=== PATIENT | female | born 1940 | race Two or more races ===

== ENCOUNTER 2019-02-01 13:18 | Inpatient (IN) | payer OTHER, MEDICARE ==
[2019-02-01 13:28] VITALS: BMI 32.8
--- NOTE | 2019-02-01 13:38 | PDOC ---
History of Present Illness - General Chief Complaint: Diarrhea Stated Complaint: Diarrhea Time Seen by Provider: 02/01/19 13:37 History Source: Patient Exam Limitations: No Limitations - History of Present Illness Initial Comments: 78 year old female with PMH HTN, HLD, NIDDM, hemorrhoids with chronic rectal bleeding, right anterior lower leg ulcer, chronic lymphedema, AV replacement, CAD sp CABG, left lung CA s/p radiation, pulmonary HTN presented to ED for diarrhea x3 days. She reported that Dr. Bailey placed her on Linolezid 01/25/19 for her RLE ulcer in preparation for a vein procedure to be performed by vascular. She reported she has an appointment with Dr. Multani for this afternoon , but when she called and said she had diarrhea the wound clinic advised her to come to the ED. She denied fever, abdominal pain, lightheadedness, chest pain, shortness of breath, dysuria. She admitted to blood on toilet paper today, denied blood mixed in stool, which is similar to her usual bowel movements with her hemorrhoids. PCP: Meet Swain Past History - Past Medical History Allergies/Adverse Reactions: Allergies Allergy/AdvReac Type Severity Reaction Status Date / Time ciprofloxacin Allergy Severe Difficulty Verified 02/01/19 13:29 Breathing Penicillins Allergy Severe Difficulty Verified 02/01/19 13:29 Breathing Quinolones Allergy Severe Difficulty Verified 02/01/19 13:29 Breathing levofloxacin [From Levaquin] Allergy Verified 02/01/19 13:29 Home Medications: Ambulatory Orders Allopurinol [Zyloprim -] 300 mg PO DAILY 08/05/18 Carvedilol [Coreg -] 6.25 mg PO BID 08/05/18 Epoetin Eulalio [Procrit -] 60,000 unit SQ ASDIR 08/05/18 Famotidine [Pepcid] 20 mg PO DAILY 08/05/18 Furosemide [Lasix] 60 mg PO DAILY 08/05/18 Levothyroxine Sodium [Synthroid] 88 mcg PO AM 08/05/18 Lipitor 40 mg PO HS 08/05/18 Magnesium Oxide [Magnesium] 400 mg PO DAILY 08/05/18 Vitamin D - 2,000 units PO DAILY 08/05/18 Pantoprazole Sodium [Protonix] 40 mg PO BID 02/01/19 Anemia: Yes Asthma: Yes Cancer: Yes (Lung stage 2 had radiation) Cardiac Disorders: Yes (Valve replacement Jan 2019) CVA: No COPD: Yes CHF: No Dementia: No Diabetes: Yes GI Disorders: Yes (Bleeding) Disorders: No HTN: Yes Hypercholesterolemia: Yes Liver Disease: No Seizures: No Thyroid Disease: Yes (HyPothyroidism) - Surgical History Abdominal Surgery: Yes (Hernia rerpair and abd Hernia present) Appendectomy: Yes Cardiac Surgery: Yes Cholecystectomy: Yes Lung Surgery: No Neurologic Surgery: No Orthopedic Surgery: No - Psycho Social/Smoking Cessation Hx Smoking History: Unknown if ever smoked Have you smoked in the past 12 months: No If you are a former smoker, when did you quit?: 20 years ago Information on smoking cessation initiated: No Hx Alcohol Use: No Drug/Substance Use Hx: No *Physical Exam - Vital Signs Last Vital Signs Temp Pulse Resp BP Pulse Ox 97.8 F 78 16 101/59 L 100 02/01/19 13:27 02/01/19 13:27 02/01/19 13:27 02/01/19 13:27 02/01/19 13:27 - Physical Exam Comments: ROS General: denied fever, chills, generalized weakness. HEENT: denied sore throat, rhinorrhea, ear pain. Cardiovascular: denied chest pain, palpitations, syncope, diaphoresis. Respiratory: denied shortness of breath, cough, sputum production, hemoptysis. Gastrointestinal: admitted to diarrhea. denied abdominal pain, nausea, vomiting , constipation, blood in stool. Genitourinary: denied dysuria, increased urinary frequency, hematuria, urinary incontinence, flank pain. Back: denied back pain. Musculoskeletal: denied joint pain, muscle pain, joint swelling. Neurological: denied headache, dizziness, numbness, tingling, weakness. Integumentary: denied rash, laceration, abrasion. Hematologic/Lymphatic: denied bruising or bleeding. PE Constitutional: Well-nourished, Well-developed, appearing stated age. HEENT: head is normocephalic, atraumatic. EOMI. PERRLA. Neck: supple. Full ROM. Cardiovascular: regular heart rhythm. no murmurs. no pericardial friction rub. Respiratory: clear to auscultation bilaterally. no crackles, rhonchi or wheezing. no stridor. Gastrointestinal: soft, nontender. protuberant. normal bowel sounds. no rebound , guarding, masses. Extremities: peripheral pulses intact. no lower extremity pitting edema. RLE 4x4 cm circular ulcer to anterior [place]. Neurological: CN 2-12 grossly intact. moves all four extremities. Psych: awake, alert, oriented x3. follows commands. answers questions appropriately. ED Treatment Course - LABORATORY CBC & Chemistry Diagram: 02/01/19 14:14 02/01/19 14:14 Medical Decision Making - Medical Decision Making 78 year old female with above PMH presented to ED for diarrhea. Initial Vital Signs Temp Pulse Resp BP Pulse Ox 97.8 F 78 16 101/59 L 100 02/01/19 13:27 02/01/19 13:27 02/01/19 13:27 02/01/19 13:27 02/01/19 13:27 Afebrile. No tachycardia. No tachypnea. Hypotensive. No hypoxia on room air. Labs ordered: CBC, CMP, blood cultures, mag, phos, stool culture, stool for blood IMAGING ORDERED: CT abdomen/pelvis with IV contrast MEDICATIONS ORDERED: normal saline bolus 1000 cc once 02/01/19 14:[address] Bailey about the patient, he reported he will consult. 02/01/19 15:19 CBC WBC 4.1 K/mm3 (4.0-10.0) 02/01/19 14:14 RBC 3.18 M/mm3 (3.60-5.2) L 02/01/19 14:14 Hgb 9.0 GM/dL (10.7-15.3) L 02/01/19 14:14 Hct 29.1 % (32.4-45.2) L 02/01/19 14:14 MCV 91.5 fl (80-96) 02/01/19 14:14 MCH 28.2 pg (25.7-33.7) 02/01/19 14:14 MCHC 30.8 g/dl (32.0-36.0) L 02/01/19 14:14 RDW 19.8 % (11.6-15.6) H 02/01/19 14:14 Plt Count 78 K/MM3 (134-434) L 02/01/19 14:14 MPV 10.1 fl (7.5-11.1) 02/01/19 14:14 Absolute Neuts (auto) 3.4 K/mm3 (1.5-8.0) 02/01/19 14:14 Neutrophils % 81.6 % (42.8-82.8) 02/01/19 14:14 Lymphocytes % 11.1 % (8-40) 02/01/19 14:14 Monocytes % 4.2 % (3.8-10.2) 02/01/19 14:14 Eosinophils % 1.6 % (0-4.5) 02/01/19 14:14 Basophils % 1.5 % (0-2.0) 02/01/19 14:14 Nucleated RBC % 0 % (0-0) 02/01/19 14:14 No leukocytosis. Normocytic anemia. Thrombocytopenia. CMP Sodium 139 mmol/L (136-145) 02/01/19 14:14 Potassium 5.6 mmol/L (3.5-5.1) H 02/01/19 14:14 Chloride 110 mmol/L (98-107) H 02/01/19 14:14 Carbon Dioxide 20 mmol/L (21-32) L 02/01/19 14:14 Anion Gap 9 MMOL/L (8-16) 02/01/19 14:14 BUN 74.1 mg/dL (7-18) H 02/01/19 14:14 Creatinine 2.0 mg/dL (0.55-1.3) H 02/01/19 14:14 Est GFR (CKD-EPI)AfAm 27.22 02/01/19 14:14 Est GFR (CKD-EPI)NonAf 23.49 02/01/19 14:14 Random Glucose 140 mg/dL (74-106) H 02/01/19 14:14 Calcium 7.2 mg/dL (8.5-10.1) L 02/01/19 14:14 Phosphorus 5.3 mg/dL (2.5-4.9) H 02/01/19 14:14 Magnesium 1.0 mg/dL (1.8-2.4) L 02/01/19 14:14 Total Bilirubin 0.6 mg/dL (0.2-1) 02/01/19 14:14 AST 35 U/L (15-37) 02/01/19 14:14 ALT 29 U/L (13-61) 02/01/19 14:14 Alkaline Phosphatase 259 U/L (45-117) H 02/01/19 14:14 Total Protein 6.7 g/dl (6.4-8.2) 02/01/19 14:14 Albumin 2.8 g/dl (3.4-5.0) L 02/01/19 14:14 Mild hyperkalemia - EKG is ordered. -Medications ordered: Calcium gluconate 1000 mg IV once -IVF running Mild hypocalcemia - corrected 8.2 Hypomagnesium -Medications ordered: Magnesium 2g IV once Elevated ALP. Stool positive for blood. Medications ordered: PO Vancomycin 02/01/19 15:36 EKG performed at 1520: rate 83, regular rhythm, normal axis, normal intervals, no acute ST changes, no peaked T waves. 02/01/19 16:18 Pt was very anxious while at CT, reported she has a history of claustophobia, and even with CT is very anxious. She reported she had an abdominal CT x1 month ago that was normal, and she does not feel she needs the CT today. Pt was informed and educated on why the CT was ordered, that since her last normal one she has developed antibiotic associated diarrhea, high concern for C-diff, and we must look for complications such as toxic megacolon. She reported understanding and ultimately was able to tolerate the CT being performed. 02/01/19 16:50 Pt reported to RN she would like to be transferred to [facility] if she is going to be admitted because all of her doctors are there. Pt informed she can leave AMA and go to her own hospital, but that we cannot provide her with ambulance transfer for preference. She reported she only came to this hospital because she was instructed by wound care specifically. She ultimately decided to stay in this hospital with the persuasion of her . 02/01/19 17:25 CT report: Name: [facility] DEPARTMENT OF RADIOLOGY Phys: Zaria Ulloa RESIDENT : 1940 Age: 78 Sex: F [facility] Acct: [id number] Loc: [address] Exam Date: 02/01/19 Status: [place] [id number] Unit Number: [id number] EXAM#: TYPE/EXAM: RESULT: [id number] CT/ABDOMEN PELVIS CT W/O CONTR Abdomen and pelvis CT without contrast Clinical information: diarrhea after starting antibiotics Multiplanar imaging was performed. No intravenous or enteric contrast was administered. No prior imaging studies are available at this facility for direct comparison. There is no evidence of pneumoperitoneum, or bowel obstruction. A small amount of free intraperitoneal fluid is noted within the pelvic cul-de-sac. A small right pleural effusion is seen. Cardiomegaly is noted. Status post median sternotomy. Concentric subcutaneous edema is seen along the abdomen and pelvis. A 3 cm subcutaneous cystic structure seen along the left anterior pelvic wall. No obvious large or small bowel wall edema is seen allowing for lack of intraluminal contrast. Mild hepatic vein and inferior vena cava distention is noted probably secondary cardiac dysfunction. Note is also made of mild periportal edema probably on the same basis. Status post cholecystectomy. Mild common bile duct dilatation is noted with a 0.9 cm diameter. No gross intraductal calculus is seen within the limitations of CT. The spleen measures 13 cm in length. The pancreas, adrenal glands and kidneys demonstrate no obvious noncontrast pathology. Prominent atherosclerotic vascular calcifications are noted. There is no aortic aneurysm. No gross lymphadenopathy is noted. The appendix is not definitely visualized however there are no obvious indirect CT signs of acute appendicitis. No obvious acute diverticulitis. Impression: There is no gross CT evidence of enterocolitis. Small amount of pelvic free fluid. Small right pleural effusion. Cardiomegaly. Status post median sternotomy. Prominent concentric subcutaneous edema along the abdomen and pelvis. Status post cholecystectomy. Mild nonspecific common bile duct dilatation which may be postsurgical. Clinical/laboratory correlation is suggested. Minimal to mild splenomegaly. 3 cm left anterior pelvic subcutaneous cystic structure. Reported By: Beka Fernández MD 02/01/19 2689 CXR report: Name: [facility] DEPARTMENT OF RADIOLOGY Phys: Zaria Ulloa RESIDENT : 1940 Age: 78 Sex: F [facility] Acct: [id number] Loc: [address] Exam Date: 02/01/19 Status: [facility] [place] [address] Unit Number: [id number] EXAM#: TYPE/EXAM: RESULT: [id number] RAD/CHEST PA LAT 2 view chest Comparison studies: None Clinical history: Admission for diarrhea Abnormal chest radiograph , cardiomegaly with endovascular replacement aortic valve. Median sternotomy wires and CABG clips in place. Calcified aortic arch with no mediastinal widening. Emphysematous changes in the lungs with blunting in the posterior costophrenic sulci, small pleural effusions at the bases with emphysematous changes in the lungs Patchy alveolar airspace consolidation left upper lobe suspicious for pneumonia Impression: Left upper lobe pneumonia with emphysematous changes and pleural effusions at the bases. Clinical correlation. Reported By: Cesar Rudolph MD 02/01/19 1602 -No cough, no fever, no shortness of breath -Suspect left sided opacity is related to lung CA -Will not treat at this time 02/01/19 18:06 Sign out given to Dr. Orourke, who agrees with admission. 02/01/19 18:58 Repeat blood pressure elevated 190s systolic per tech. Pt is due for night HTN medications. Coreg 6.25 mg PO once ordered. Discharge - Discharge Information Problems reviewed: Yes Clinical Impression/Diagnosis: Diarrhea, Hypomagnesemia, Hypocalcemia, Hyperkalemia Condition: Stable - Admission Yes - Follow up/Referral - Patient Discharge Instructions - Post Discharge Activity
[2019-02-01] MEDS ORDERED: SODIUM CHLORIDE 1,000 ML IV STA (14:01)
[2019-02-01 14:36] LABS: BASO % 1.5 % (0-2.0); EOS % 1.6 % (0-4.5); HEMATOCRIT 29.1 % (32.4-45.2); LYMPH % 11.1 % (8-40); MCH 28.2 pg (25.7-33.7); MCHC 30.8 g/dl (32.0-36.0); MEAN CELL VOLUME 91.5 fl (80-96); MEAN PLT VOLUME 10.1 fl (7.5-11.1); MONO % 4.2 % (3.8-10.2); NEUT % 81.6 % (42.8-82.8); PLATELET COUNT 78 K/MM3 (134-434); RBC 3.18 M/mm3 (3.60-5.2); RDW 19.8 % (11.6-15.6); WHITE BLOOD COUNT 4.1 K/mm3 (4.0-10.0)
[2019-02-01 14:44] LABS: INR 1.26 (0.83-1.09); PROTHROMBIN TIME (PATIENT) 14.9 SEC (9.7-13.0)
[2019-02-01 14:47] LABS: ACTIVATED PTT 30.3 SECONDS (25.2-36.5)
[2019-02-01 14:59] LABS: ALBUMIN 2.8 g/dl (3.4-5.0); BILIRUBIN,TOTAL 0.6 mg/dL (0.2-1); BLOOD UREA NITROGEN 74.1 mg/dL (7-18); CALCIUM 7.2 mg/dL (8.5-10.1); POTASSIUM 5.6 mmol/L (3.5-5.1); TOT PROT 6.7 g/dl (6.4-8.2)
[2019-02-01] MEDS ORDERED: MAGNESIUM SULF 50% (8.12 MEQ/2 ML-1 GM VIAL) IVPB ONE (15:18)
[2019-02-01] MEDS ORDERED: CALCIUM GLUCONATE 10% - 1,000 MG/10 ML VIAL IVPUSH ONE (15:18)
[2019-02-01] MEDS ORDERED: VANCOMYCIN 250 MG/5 ML ORAL SOLUTION PO ONE (15:39)
[2019-02-01] MEDS ORDERED: CALCIUM GLUCONATE 10% - 1,000 MG/10 ML VIAL ONE (16:10)
[2019-02-01] MEDS ORDERED: MAGNESIUM 1GM/D5W - 2 GM/200 ML IVPB IVPB ONE (16:11)
--- NOTE | 2019-02-01 17:43 | PDOC ---
Attending Attestation - Resident Resident Name: Zaria Ulloa - ED Attending Attestation I have performed the following: I have examined & evaluated the patient, The case was reviewed & discussed with the resident, I agree w/resident's findings & plan, Exceptions are as noted - HPI HPI: 02/01/19 17:36 78 yo F with h/o lung ca s/p radiation, pulm htn ( no resection), copd, htn hld , DM chronic lymphedema, leg wounds, followed by DR Multani, and dr Sorenson. was started on linezolid by dr bailey, few day prior. started getting loose stool, diarreha, nausea, and blood on toilet paper. no abd pain. no fever. no chills. no mod factors. does have h/o rectal bleeding in the past, hemorrhoids. states her renal doctor, and lung specialist and oncologist are at [facility] pcp (lung specialist) Dr Da Silva ( cycle director) Dr Multani, vascular DR Bailey ID It Support Technician - Physicial Exam PE: 02/01/19 17:40 awake alert lungs clear bilat heart rrr no mrg abd soft obese, nontender. ext wwp. nuero alert oriented x 3. - Medical Decision Making 02/01/19 17:40 78 yo F with chronic leg wounds, on abx, pulm htn lung ca htn dm here with nausea and diarrhea differential is C diff, dehydration, electrlyte abnormality renal failure. ct a/p r/o megacolin, diverticulitis. colitis. ct a/p no 02/01/19 17:44 pt with infiltrate left upper lobe/ cancer. . noted to have renal failure cr. 2.0, hyperkalemia 5.6. hypomagnesiums. 1.0. hypocalcemia 7.6. given po vancomycin for her diarreha. will consult dr bailey. and admit for renal insufficiencyl. Heart Score/ECG Review #1 ECG reviewed & interpreted by me at: 17:46 General ECG Interpretation: Sinus Rhythm, Normal Rate, Normal Intervals, No acute ischemic changes
[2019-02-01] MEDS ORDERED: VANCOMYCIN 250 MG/5 ML ORAL SOLUTION PO SCH (18:00)
[2019-02-01] MEDS ORDERED: CARVEDILOL 6.25 MG TABLET (FP) PO ONE (18:57)
[2019-02-01 19:37] LABS: BLOOD UREA NITROGEN 73.4 mg/dL (7-18); CALCIUM 7.1 mg/dL (8.5-10.1); CREATININE 1.9 mg/dL (0.55-1.3); MAGNESIUM 1.4 mg/dL (1.8-2.4); POTASSIUM 5.2 mmol/L (3.5-5.1)
[2019-02-01] MEDS ORDERED: CARVEDILOL 3.125 MG TABLET (FP) ONE (20:04)
--- NOTE | 2019-02-01 20:52 | HP ---
Admitting History and Physical - Primary Care Physician PCP: Reagan Orourke - Admission History of Present Illness: 78 yo F with h/o lung ca s/p radiation, pulm htn ( no resection), copd, htn hld , DM chronic lymphedema, leg wounds, followed by DR Multani, and dr Sorenson. was started on linezolid by dr nazario, few day prior. started getting loose stool, diarreha, nausea, and blood on toilet paper. no abd pain. no fever. no chills. no mod factors. does have h/o rectal bleeding in the past, hemorrhoids. states her renal doctor, and lung specialist and oncologist are at [facility] - Past Medical History Cardiovascular: Yes: HTN, Hyperlipdemia Pulmonary: Yes: COPD, Other (lung ca) Endocrine: Yes: Diabetes Mellitus - Smoking History Smoking history: Unknown if ever smoked Have you smoked in the past 12 months: No If you are a former smoker, when did you quit?: 20 years ago - Alcohol/Substance Use Hx Alcohol Use: No Home Medications - Allergies Allergies/Adverse Reactions: Allergies Allergy/AdvReac Type Severity Reaction Status Date / Time ciprofloxacin Allergy Severe Difficulty Verified 02/01/19 13:29 Breathing Penicillins Allergy Severe Difficulty Verified 02/01/19 13:29 Breathing Quinolones Allergy Severe Difficulty Verified 02/01/19 13:29 Breathing levofloxacin [From Levaquin] Allergy Verified 02/01/19 13:29 - Home Medications Home Medications: Ambulatory Orders Allopurinol [Zyloprim -] 300 mg PO DAILY 08/05/18 Carvedilol [Coreg -] 6.25 mg PO BID 08/05/18 Epoetin Eulalio [Procrit -] 60,000 unit SQ ASDIR 08/05/18 Famotidine [Pepcid] 20 mg PO DAILY 08/05/18 Furosemide [Lasix] 60 mg PO DAILY 08/05/18 Levothyroxine Sodium [Synthroid] 88 mcg PO AM 08/05/18 Lipitor 40 mg PO HS 08/05/18 Magnesium Oxide [Magnesium] 400 mg PO DAILY 08/05/18 Vitamin D - 2,000 units PO DAILY 08/05/18 Acetaminophen [Tylenol .Extra-Strength -] 1,000 mg PO DAILY 02/01/19 Ferrous Sulfate [Iron] 325 mg PO ONCE 02/01/19 Pantoprazole Sodium [Protonix] 40 mg PO BID 02/01/19 Physical Examination Vital Signs: Vital Signs Temperature 98.6 F 02/01/19 18:56 Pulse Rate 91 H 02/01/19 18:56 Respiratory Rate 19 02/01/19 18:56 Blood Pressure 197/72 H 02/01/19 18:56 O2 Sat by Pulse Oximetry (%) 98 02/01/19 18:56 Constitutional: Yes: No Distress HENT: Yes: Atraumatic Neck: Yes: Supple Cardiovascular: Yes: Regular Rate and Rhythm Respiratory: Yes: CTA Bilaterally Gastrointestinal: Yes: Normal Bowel Sounds Extremities: Yes: Other (wound prasad/ lymphedema) Neurological: Yes: Alert Labs: CBC, BMP 02/01/19 14:14 02/01/19 18:50 Imaging - Results Cat Scan: Report Reviewed Problem List - Problems (1) Diarrhea Assessment/Plan: ivf check stool cx, c diff Code(s): R19.7 - DIARRHEA, UNSPECIFIED (2) Hyperkalemia Assessment/Plan: will fu Code(s): E87.5 - HYPERKALEMIA (3) Hypocalcemia Code(s): E83.51 - HYPOCALCEMIA (4) Hypomagnesemia Code(s): E83.42 - HYPOMAGNESEMIA (5) Wound cellulitis Assessment/Plan: on iv abx id on board Code(s): L03.90 - CELLULITIS, UNSPECIFIED Assessment/Plan Laboratory Tests 02/01/19 02/01/19 02/01/19 14:14 14:14 14:14 WBC 4.1 RBC 3.18 L Hgb 9.0 L Hct 29.1 L MCV 91.5 MCH 28.2 MCHC 30.8 L RDW 19.8 H Plt Count 78 L MPV 10.1 Absolute Neuts (auto) 3.4 Neutrophils % 81.6 Lymphocytes % 11.1 Monocytes % 4.2 Eosinophils % 1.6 Basophils % 1.5 Nucleated RBC % 0 PT with INR INR PTT (Actin FS) Sodium 139 Potassium 5.6 H Chloride 110 H Carbon Dioxide 20 L Anion Gap 9 BUN 74.1 H Creatinine 2.0 H Est GFR (CKD-EPI)AfAm 27.22 Est GFR (CKD-EPI)NonAf 23.49 Random Glucose 140 H Calcium 7.2 L Phosphorus 5.3 H Magnesium 1.0 L Total Bilirubin 0.6 AST 35 ALT 29 Alkaline Phosphatase 259 H Total Protein 6.7 Albumin 2.8 L Stool Occult Blood 02/01/19 02/01/19 02/01/19 14:14 14:53 18:50 WBC RBC Hgb Hct MCV MCH MCHC RDW Plt Count MPV Absolute Neuts (auto) Neutrophils % Lymphocytes % Monocytes % Eosinophils % Basophils % Nucleated RBC % PT with INR 14.90 H INR 1.26 H PTT (Actin FS) 30.3 Sodium 139 Potassium 5.2 H Chloride 112 H Carbon Dioxide 17 L Anion Gap 10 BUN 73.4 H Creatinine 1.9 H Est GFR (CKD-EPI)AfAm 28.96 Est GFR (CKD-EPI)NonAf 24.99 Random Glucose 160 H Calcium 7.1 L Phosphorus Magnesium 1.4 L Total Bilirubin AST ALT Alkaline Phosphatase Total Protein Albumin Stool Occult Blood Positive Active Medications Generic Name Dose Route Start Last Admin Trade Name Freq PRN Reason Stop Dose Admin Acetaminophen 1,000 mg 02/01/19 22:33 02/03/19 22:38 Tylenol - PO 1,000 mg Q6H PRN Administration PAIN LEVEL 7 - 10 Albuterol Sulfate 1 amp 02/04/19 20:00 Ventolin 0.083% Nebulizer Soln - NEB RBID [facility] Allopurinol 300 mg 02/02/19 10:00 02/04/19 10:36 Zyloprim - PO 300 mg DAILY PETER Administration Atorvastatin Calcium 40 mg 02/01/19 22:00 02/03/19 21:06 Lipitor - PO 40 mg HS PETER Administration Carvedilol 6.25 mg 02/01/19 22:00 02/04/19 10:36 Coreg - PO 6.25 mg BID PETER Administration Famotidine 20 mg 02/02/19 10:00 02/04/19 10:36 Pepcid - PO 20 mg DAILY PETER Administration Ferrous Sulfate 325 mg 02/02/19 10:00 02/04/19 10:36 Feosol - PO 325 mg DAILY PETER Administration Furosemide 60 mg 02/02/19 10:00 02/04/19 10:36 Lasix - PO 60 mg DAILY PETER Administration Heparin Sodium (Porcine) 5,000 unit 02/01/19 22:00 02/04/19 10:28 Heparin - SQ 5,000 unit BID PETER Administration Aztreonam 1 gm/ Dextrose 50 mls @ 100 mls/hr 02/02/19 13:30 02/04/19 10:27 IVPB 100 mls/hr Q8H-IV PETER Administration Protocol Vancomycin HCl 1,250 mg/ 250 mls @ 250 mls/2 hr 02/02/19 13:30 02/04/19 12:44 Dextrose IVPB 250 mls/2 hr Q24H PETER Administration Protocol Levothyroxine Sodium 88 mcg 02/02/19 07:00 02/04/19 05:59 Synthroid - PO 88 mcg AM PETER Administration Pantoprazole Sodium 40 mg 02/02/19 10:00 02/04/19 10:38 Protonix - PO 40 mg DAILY PETER Administration Silver Sulfadiazine 1 applic 02/02/19 10:00 02/04/19 10:37 Silvadene - TP 1 applic DAILY PETER Administration
[2019-02-01] MEDS: CARVEDILOL 6.25 MG TABLET (FP) PO SCH (22:18)
[2019-02-01] MEDS: ATORVASTATIN CA 40 MG TABLET (FP) PO SCH (23:00)
[2019-02-01] MEDS ORDERED: ACETAMINOPHEN 325 MG TABLET (FP) ONE (23:00)
[2019-02-01] MEDS: HEPARIN NA (PORCINE) 5,000 UNITS/ML 1ML VIAL SQ SCH (23:00)
[2019-02-01] MEDS ORDERED: ATORVASTATIN CA 40 MG TABLET (FP) ONE (23:01)
[2019-02-01] MEDS ORDERED: FERROUS SO4 325 MG TABLET (FP) PO ONE (23:01)
[2019-02-01] MEDS ORDERED: PANTOPRAZOLE 40 MG TABLET (FP) PO ONE (23:01)
[2019-02-01] MEDS ORDERED: HEPARIN NA (PORCINE) 5,000 UNITS/ML 1ML VIAL ONE (23:04)
[2019-02-01] MEDS: ACETAMINOPHEN 500 MG TABLET (FP) PO PRN (23:16)
[2019-02-02 05:48] LABS: HEMOGLOBIN 8.6 GM/dL (10.7-15.3); MCH 28.3 pg (25.7-33.7); WHITE BLOOD COUNT 2.9 K/mm3 (4.0-10.0)
[2019-02-02 06:03] LABS: BASO % 1.4 % (0-2.0); EOS % 1.7 % (0-4.5); HEMATOCRIT 27.2 % (32.4-45.2); LYMPH % 26.3 % (8-40); MCHC 31.5 g/dl (32.0-36.0); MEAN CELL VOLUME 89.9 fl (80-96); MEAN PLT VOLUME 9.8 fl (7.5-11.1); MONO % 3.6 % (3.8-10.2); PLATELET COUNT 69 K/MM3 (134-434); RBC 3.03 M/mm3 (3.60-5.2); RDW 19.8 % (11.6-15.6)
[2019-02-02 06:41] LABS: ALBUMIN 2.7 g/dl (3.4-5.0); BILIRUBIN,TOTAL 0.7 mg/dL (0.2-1); BLOOD UREA NITROGEN 73.3 mg/dL (7-18); CALCIUM 7.4 mg/dL (8.5-10.1); CREATININE 1.9 mg/dL (0.55-1.3); POTASSIUM 4.8 mmol/L (3.5-5.1); TOT PROT 6.2 g/dl (6.4-8.2)
[2019-02-02] MEDS: LEVOTHYROXINE NA 88 MCG TABLET (FP) PO SCH (08:55)
--- NOTE | 2019-02-02 09:54 | CONSULT ---
- Consultation REQUESTING PROVIDER: CONSULT REQUEST: We have been asked to surgically evaluate this patient for Venous stasis wounds. PCP:Reagan Orourke HISTORY OF PRESENT ILLNESS: 78 y/o F w/ PMHx lung ca s/p radiation, pulm htn, copd, htn hld, CAD s/p stent placement, DM, chronic lymphedema known to Dr Multani , presents to ED for c/o diarrhea. Pt reports she was started on Linezolid by Dr Bailey a few day prior. Yesterday she reports an episode of significant diarrhea and nausea. Believes it is due to the antibiotics. Vascular consulted for evaluation of pts LE leg wounds. Pt reports she has had her current RLE wound for 5 months. She has been mainly treated at [facility], however her visiting nurse suggested seeing Dr Multani at wound Care here at [facility]. Pt began seeing Dr Multani a few weeks ago and was scheduled for ?vein surgery yesterday, however it was canceled due to diarrhea. Reports using Silvadene on LE wounds. Changes dressings daily herself, states VNS was d/c'ed recently by insurance due to coverage. Denies prior h/o cellulitis in le's, denies need for outpt abx for cellulitis or inpt admission. Just received lymphadema pump recently, has not used it yet. At baseline pt lives with , ambulates with a walker or cane, reports she is not limited in ambulation. Has remote h/o tobacco use, quit >40 years ago. Denies known le arterial disease or stent placement. 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 Wears compression socks at home. PMHx: as above PSHx: as above Home Medications Medication Instructions Recorded Allopurinol [Zyloprim -] 300 mg PO DAILY 08/05/18 Carvedilol [Coreg -] 6.25 mg PO BID 08/05/18 Epoetin Eulalio [Procrit -] 60,000 unit SQ ASDIR 08/05/18 Famotidine [Pepcid] 20 mg PO DAILY 08/05/18 Furosemide [Lasix] 60 mg PO DAILY 08/05/18 Levothyroxine Sodium [Synthroid] 88 mcg PO AM 08/05/18 Lipitor 40 mg PO HS 08/05/18 Magnesium Oxide [Magnesium] 400 mg PO DAILY 08/05/18 Vitamin D - 2,000 units PO DAILY 08/05/18 Acetaminophen [Tylenol -] 1,000 mg PO DAILY 02/01/19 Ferrous Sulfate [Iron] 325 mg PO ONCE 02/01/19 Pantoprazole Sodium [Protonix] 40 mg PO BID 02/01/19 Allergies Allergy/AdvReac Type Severity Reaction Status Date / Time ciprofloxacin Allergy Severe Difficulty Verified 02/01/19 13:29 Breathing Penicillins Allergy Severe Difficulty Verified 02/01/19 13:29 Breathing Quinolones Allergy Severe Difficulty Verified 02/01/19 13:29 Breathing levofloxacin [From Levaquin] Allergy Verified 02/01/19 13:29 REVIEW OF SYSTEMS: CONSTITUTIONAL: Absent: fever, chills CARDIOVASCULAR: Absent: chest pain RESPIRATORY: Absent: cough, shortness of breath GASTROINTESTINAL: +nausea, diarrhea PHYSICAL EXAM: GENERAL: Awake, alert, and fully oriented, in no acute distress. HEAD: Normal with no signs of trauma. LUNGS: Unlabored on RA. No accessory muscle use. LOWER EXTREMITIES: 3x3cm irregularly shaped ulcer on r anterior tibia. Clean based with granulation tissue present. No erythema, scant serous drainage. No ttp. No foul odor. B/L le's with hyperpigmentation. +2+ pitting edema to lower thighs. Hypertrophic skin changes b/l. No open wounds to lle. Vasc: [place] dp b/l, PT not appreciated secondary to edema and hyperpigmentation. Vital Signs Temperature 98.6 F 02/01/19 18:56 Pulse Rate 86 02/01/19 22:54 Respiratory Rate 19 02/01/19 22:54 Blood Pressure 155/68 02/01/19 22:54 O2 Sat by Pulse Oximetry (%) 98 02/01/19 22:54 Lab Results WBC 2.9 K/mm3 (4.0-10.0) L 02/02/19 05:37 RBC 3.03 M/mm3 (3.60-5.2) L 02/02/19 05:37 Hgb 8.6 GM/dL (10.7-15.3) L 02/02/19 05:37 Hct 27.2 % (32.4-45.2) L 02/02/19 05:37 MCV 89.9 fl (80-96) 02/02/19 05:37 MCHC 31.5 g/dl (32.0-36.0) L 02/02/19 05:37 RDW 19.8 % (11.6-15.6) H 02/02/19 05:37 Plt Count 69 K/MM3 (134-434) L 02/02/19 05:37 Sodium 138 mmol/L (136-145) 02/02/19 05:37 Potassium 4.8 mmol/L (3.5-5.1) 02/02/19 05:37 Chloride 112 mmol/L (98-107) H 02/02/19 05:37 Carbon Dioxide 18 mmol/L (21-32) L 02/02/19 05:37 Anion Gap 7 MMOL/L (8-16) L 02/02/19 05:37 BUN 73.3 mg/dL (7-18) H 02/02/19 05:37 Creatinine 1.9 mg/dL (0.55-1.3) H 02/02/19 05:37 Random Glucose 137 mg/dL (74-106) H 02/02/19 05:37 Calcium 7.4 mg/dL (8.5-10.1) L 02/02/19 05:37 INR 1.26 (0.83-1.09) H 02/01/19 14:14 A/P: 78 y/o F w/ PMHx lung ca s/p radiation, pulm htn, copd, htn hld, CAD s/p stent placement, DM, chronic lymphedema known to Dr Multani, presents to ED for c/ o diarrhea. Vascular consulted for evaluation of pts LE leg wounds. RLE venous stasis ulcer, no signs of clinical infection -Recommend continuing Silvadene, cover with 4x4 and kerlix -Elevate the lower extremity above the level of the heart at all times while at rest -Remainder of care per medical team -Pt should f/u with Dr Multani upon d/c d/w attending Dr Multani
[2019-02-02] MEDS ORDERED: PANTOPRAZOLE 40 MG TABLET (FP) PO SCH (10:00)
[2019-02-02] MEDS: FAMOTIDINE 20 MG TABLET PO SCH (10:13)
[2019-02-02] MEDS: CARVEDILOL 6.25 MG TABLET (FP) PO SCH ×2 (10:13→21:30)
[2019-02-02] MEDS: FUROSEMIDE 20 MG TABLET (FP) PO SCH (10:13)
[2019-02-02] MEDS: FERROUS SO4 325 MG TABLET (FP) PO SCH (10:13)
[2019-02-02] MEDS: ALLOPURINOL 300 MG TABLET (FP) PO SCH (10:14)
[2019-02-02] MEDS: PANTOPRAZOLE 40 MG TABLET (FP) PO SCH (10:14)
[2019-02-02] MEDS: SILVER SULFADIAZINE 1% TOP CREAM 50 GM JAR TP SCH (10:14)
[2019-02-02] MEDS: HEPARIN NA (PORCINE) 5,000 UNITS/ML 1ML VIAL SQ SCH ×2 (10:15→21:31)
[2019-02-02] MEDS ORDERED: HEPARIN NA (PORCINE) 5,000 UNITS/ML 1ML VIAL ONE (10:16)
--- NOTE | 2019-02-02 11:05 | EKG ---
Test Reason : Blood Pressure : / mmHG Vent. Rate : 083 BPM Atrial Rate : 083 BPM P-R Int : 148 ms QRS Dur : 090 ms QT Int : 422 ms P-R-T Axes : 017 076 143 degrees QTc Int : 495 ms NORMAL SINUS RHYTHM POSSIBLE INFERIOR INFARCT , AGE UNDETERMINED POSSIBLE ANTEROLATERAL INFARCT , AGE UNDETERMINED ABNORMAL ECG NO PREVIOUS ECGS AVAILABLE Confirmed by Tejas Redd MD ([id number]) on 02/02/2019 11:05:24 AM Referred By: Confirmed By:Tejas Redd MD
--- NOTE | 2019-02-02 13:10 | CON.ID ---
Consult Consult Specialty:: infectious diseases Referred by:: Reason for Consultation:: wound infection - History of Present Illness Chief Complaint: dirrhoea,weakness History of Present Illness: 78 yo F with h/o lung ca s/p radiation, pulm htn ( no resection), copd, htn hld , DM chronic lymphedema, leg wounds, who is coming to the hospital because of dirrhoea, patient was seen in the wound care and had refused admission and was started on liezoloid which she took for few days and according to her after few days she had dirrhoea and she came to the hospital and was admitted also she mentions that she had blood on her toilet paper currently patient looks stable - History Source History Provided By: Patient Limitations to Obtaining History: No Limitations - Past Medical History Cardio/Vascular: Yes: HTN, Hyperlipdemia Pulmonary: Yes: COPD, Other (lung ca) Endocrine: Yes: Diabetes Mellitus - Alcohol/Substance Use Hx Alcohol Use: No - Smoking History Smoking history: Unknown if ever smoked Have you smoked in the past 12 months: No If you are a former smoker, when did you quit?: 20 years ago Home Medications - Allergies Allergies/Adverse Reactions: Allergies Allergy/AdvReac Type Severity Reaction Status Date / Time ciprofloxacin Allergy Severe Difficulty Verified 02/01/19 13:29 Breathing Penicillins Allergy Severe Difficulty Verified 02/01/19 13:29 Breathing Quinolones Allergy Severe Difficulty Verified 02/01/19 13:29 Breathing levofloxacin [From Levaquin] Allergy Verified 02/01/19 13:29 - Home Medications Home Medications: Ambulatory Orders Allopurinol [Zyloprim -] 300 mg PO DAILY 08/05/18 Carvedilol [Coreg -] 6.25 mg PO BID 08/05/18 Epoetin Eulalio [Procrit -] 60,000 unit SQ ASDIR 08/05/18 Famotidine [Pepcid] 20 mg PO DAILY 08/05/18 Furosemide [Lasix] 60 mg PO DAILY 08/05/18 Levothyroxine Sodium [Synthroid] 88 mcg PO AM 08/05/18 Lipitor 40 mg PO HS 08/05/18 Magnesium Oxide [Magnesium] 400 mg PO DAILY 08/05/18 Vitamin D - 2,000 units PO DAILY 08/05/18 Acetaminophen [Tylenol .Extra-Strength -] 1,000 mg PO DAILY 02/01/19 Ferrous Sulfate [Iron] 325 mg PO ONCE 02/01/19 Pantoprazole Sodium [Protonix] 40 mg PO BID 02/01/19 Review of Systems - Review of Systems Constitutional: reports: No Symptoms Eyes: reports: No Symptoms HENT: reports: No Symptoms Neck: reports: No Symptoms Cardiovascular: reports: No Symptoms Respiratory: reports: No Symptoms Gastrointestinal: reports: Diarrhea Genitourinary: reports: No Symptoms Musculoskeletal: reports: No Symptoms Integumentary: reports: Wound Neurological: reports: No Symptoms Hematology/Lymphatic: reports: No Symptoms Psychiatric: reports: No Symptoms Physical Exam Vital Signs: Vital Signs Temperature 97.5 F L 02/02/19 12:23 Pulse Rate 72 02/02/19 12:23 Respiratory Rate 18 02/02/19 12:23 Blood Pressure 146/61 02/02/19 12:23 O2 Sat by Pulse Oximetry (%) 98 02/02/19 12:23 Constitutional: Yes: Well Nourished, Calm, Mild Distress Eyes: Yes: Conjunctiva Clear Neck: Yes: Supple, Trachea Midline Cardiovascular: Yes: Regular Rate and Rhythm Respiratory: Yes: Regular, CTA Bilaterally Gastrointestinal: Yes: Normal Bowel Sounds, Soft Musculoskeletal: Yes: WNL Extremities: Yes: Other Integumentary: Yes: Other Wound/Incision: Yes: Dressing Dry and Intact Neurological: Yes: Alert, Oriented Psychiatric: Yes: Alert, Oriented Labs: CBC, BMP 02/02/19 05:37 02/02/19 05:37 Imaging - Results Chest X-ray: Report Reviewed, Image Reviewed Cat Scan: Report Reviewed, Image Reviewed Assessment/Plan Problem List - Problems (1) Diarrhea Code(s): R19.7 - DIARRHEA, UNSPECIFIED (2) Hyperkalemia Code(s): E87.5 - HYPERKALEMIA (3) Hypocalcemia Code(s): E83.51 - HYPOCALCEMIA (4) Hypomagnesemia Code(s): E83.42 - HYPOMAGNESEMIA (5) Wound cellulitis Code(s): L03.90 - CELLULITIS, UNSPECIFIED plan will start patient on vanco and azactam wound care await for all results rest as per the team
--- NOTE | 2019-02-02 15:16 | EKG ---
Test Reason : Blood Pressure : / mmHG Vent. Rate : 079 BPM Atrial Rate : 079 BPM P-R Int : 152 ms QRS Dur : 090 ms QT Int : 422 ms P-R-T Axes : 004 062 139 degrees QTc Int : 483 ms POOR DATA QUALITY, INTERPRETATION MAY BE ADVERSELY AFFECTED NORMAL SINUS RHYTHM INFERIOR INFARCT (CITED ON OR BEFORE 01-FEB-2019) ANTEROLATERAL INFARCT (CITED ON OR BEFORE 01-FEB-2019) ABNORMAL ECG WHEN COMPARED WITH ECG OF 01-FEB-2019 15:20, NO SIGNIFICANT CHANGE WAS FOUND Confirmed by MD Fito, David ([id number]) on 02/02/2019 3:15:30 PM Referred By: Confirmed By:David Payton MD
--- NOTE | 2019-02-02 17:57 | PN ---
Progress Note, Physician - Current Medication List Current Medications: Active Medications Acetaminophen (Tylenol -) 1,000 mg PO Q6H PRN PRN Reason: PAIN LEVEL 7 - 10 Last Admin: 02/01/19 23:16 Dose: 1,000 mg Allopurinol (Zyloprim -) 300 mg PO DAILY [facility] Last Admin: 02/02/19 10:14 Dose: 300 mg Atorvastatin Calcium (Lipitor -) 40 mg PO HS [facility] Last Admin: 02/01/19 23:00 Dose: 40 mg Carvedilol (Coreg -) 6.25 mg PO BID [facility] Last Admin: 02/02/19 10:13 Dose: 6.25 mg Famotidine (Pepcid -) 20 mg PO DAILY [facility] Last Admin: 02/02/19 10:13 Dose: 20 mg Ferrous Sulfate (Feosol -) 325 mg PO DAILY [facility] Last Admin: 02/02/19 10:13 Dose: 325 mg Furosemide (Lasix -) 60 mg PO DAILY [facility] Last Admin: 02/02/19 10:13 Dose: 60 mg Heparin Sodium (Porcine) (Heparin -) 5,000 unit SQ BID [facility] Last Admin: 02/02/19 10:15 Dose: 5,000 unit Aztreonam 1 gm/ Dextrose 50 mls @ 100 mls/hr IVPB Q8H-IV [facility]; Protocol Vancomycin HCl 1,250 mg/ (Dextrose) 250 mls @ 250 mls/2 hr IVPB Q24H [facility]; Protocol Levothyroxine Sodium (Synthroid -) 88 mcg PO AM [facility] Last Admin: 02/02/19 08:55 Dose: 88 mcg Pantoprazole Sodium (Protonix -) 40 mg PO DAILY [facility] Last Admin: 02/02/19 10:14 Dose: 40 mg Silver Sulfadiazine (Silvadene -) 1 applic TP DAILY [facility] Last Admin: 02/02/19 10:14 Dose: 1 applic - Objective Vital Signs: Vital Signs Temperature 97.5 F L 02/02/19 13:00 Pulse Rate 74 02/02/19 13:00 Respiratory Rate 18 02/02/19 13:00 Blood Pressure 155/66 02/02/19 13:00 O2 Sat by Pulse Oximetry (%) 98 02/02/19 13:00 Constitutional: Yes: No Distress HENT: Yes: Atraumatic Neck: Yes: Supple Cardiovascular: Yes: Regular Rate and Rhythm Respiratory: Yes: CTA Bilaterally Gastrointestinal: Yes: Normal Bowel Sounds Extremities: Yes: Other (wounds of lower extremity) Neurological: Yes: Alert, Oriented Labs: CBC, BMP 02/02/19 05:37 02/02/19 05:37 INR, PTT INR 1.26 (0.83-1.09) H 02/01/19 14:14 Problem List - Problems (1) Diarrhea Assessment/Plan: ivf check stool cx, c diff Code(s): R19.7 - DIARRHEA, UNSPECIFIED (2) Hyperkalemia Assessment/Plan: will fu Code(s): E87.5 - HYPERKALEMIA (3) Hypocalcemia Code(s): E83.51 - HYPOCALCEMIA (4) Hypomagnesemia Code(s): E83.42 - HYPOMAGNESEMIA (5) Wound cellulitis Assessment/Plan: on iv abx id on board Code(s): L03.90 - CELLULITIS, UNSPECIFIED
[2019-02-02] MEDS ORDERED: AZTREONAM 1 GM VIAL (RESTRICTED TO ID) ONE (18:22)
[2019-02-02] MEDS ORDERED: PT OWN MED DRAWER 7, Y5N ONE (18:23)
[2019-02-02] MEDS ORDERED: DEXTROSE 5%-WATER - 50 ML IVPB ONE (18:23)
[2019-02-02] MEDS: AZTREONAM 1 GM in DEXTROSE 5%-WATER - 50 ML IVPB SCH ×2 (18:28→18:29)
[2019-02-02] MEDS: VANCOMYCIN HCL 1,250 MG in DEXTROSE 5%-WATER - 250 ML IVPB SCH (18:29)
[2019-02-02] MEDS: ACETAMINOPHEN 500 MG TABLET (FP) PO PRN (21:30)
[2019-02-02] MEDS: ATORVASTATIN CA 40 MG TABLET (FP) PO SCH (21:30)
[2019-02-03] MEDS ORDERED: AZTREONAM 1 GM VIAL (RESTRICTED TO ID) ONE ×3 (01:06→17:26)
[2019-02-03] MEDS ORDERED: DEXTROSE 5%-WATER - 50 ML IVPB ONE ×3 (01:07→17:26)
[2019-02-03] MEDS: AZTREONAM 1 GM in DEXTROSE 5%-WATER - 50 ML IVPB SCH ×3 (01:09→18:11)
[2019-02-03] MEDS: LEVOTHYROXINE NA 88 MCG TABLET (FP) PO SCH (06:13)
[2019-02-03] MEDS: ALLOPURINOL 300 MG TABLET (FP) PO SCH (09:44)
[2019-02-03] MEDS: CARVEDILOL 6.25 MG TABLET (FP) PO SCH ×2 (09:45→21:06)
[2019-02-03] MEDS: FERROUS SO4 325 MG TABLET (FP) PO SCH (09:45)
[2019-02-03] MEDS: HEPARIN NA (PORCINE) 5,000 UNITS/ML 1ML VIAL SQ SCH ×2 (09:45→21:06)
[2019-02-03] MEDS: FUROSEMIDE 20 MG TABLET (FP) PO SCH (09:45)
[2019-02-03] MEDS: PANTOPRAZOLE 40 MG TABLET (FP) PO SCH (09:45)
[2019-02-03] MEDS: FAMOTIDINE 20 MG TABLET PO SCH (09:46)
--- NOTE | 2019-02-03 12:50 | PN ---
Progress Note, Physician History of Present Illness: stable no new issues tolerated abx all reports noted - Current Medication List Current Medications: Active Medications Acetaminophen (Tylenol -) 1,000 mg PO Q6H PRN PRN Reason: PAIN LEVEL 7 - 10 Last Admin: 02/02/19 21:30 Dose: 1,000 mg Allopurinol (Zyloprim -) 300 mg PO DAILY [facility] Last Admin: 02/03/19 09:44 Dose: 300 mg Atorvastatin Calcium (Lipitor -) 40 mg PO HS [facility] Last Admin: 02/02/19 21:30 Dose: 40 mg Carvedilol (Coreg -) 6.25 mg PO BID [facility] Last Admin: 02/03/19 09:45 Dose: 6.25 mg Famotidine (Pepcid -) 20 mg PO DAILY [facility] Last Admin: 02/03/19 09:46 Dose: 20 mg Ferrous Sulfate (Feosol -) 325 mg PO DAILY [facility] Last Admin: 02/03/19 09:45 Dose: 325 mg Furosemide (Lasix -) 60 mg PO DAILY [facility] Last Admin: 02/03/19 09:45 Dose: 60 mg Heparin Sodium (Porcine) (Heparin -) 5,000 unit SQ BID [facility] Last Admin: 02/03/19 09:45 Dose: 5,000 unit Aztreonam 1 gm/ Dextrose 50 mls @ 100 mls/hr IVPB Q8H-IV [facility]; Protocol Last Admin: 02/03/19 09:46 Dose: 100 mls/hr Vancomycin HCl 1,250 mg/ (Dextrose) 250 mls @ 250 mls/2 hr IVPB Q24H [facility]; Protocol Last Admin: 02/02/19 18:29 Dose: 250 mls/2 hr Levothyroxine Sodium (Synthroid -) 88 mcg PO AM [facility] Last Admin: 02/03/19 06:13 Dose: 88 mcg Pantoprazole Sodium (Protonix -) 40 mg PO DAILY [facility] Last Admin: 02/03/19 09:45 Dose: 40 mg Silver Sulfadiazine (Silvadene -) 1 applic TP DAILY [facility] Last Admin: 02/02/19 10:14 Dose: 1 applic - Objective Vital Signs: Vital Signs Temperature 97.7 F 02/03/19 06:13 Pulse Rate 74 02/03/19 06:13 Respiratory Rate 20 02/03/19 06:13 Blood Pressure 150/65 02/03/19 06:13 O2 Sat by Pulse Oximetry (%) 98 02/02/19 21:00 Constitutional: Yes: No Distress, Calm Cardiovascular: Yes: S1, S2 Respiratory: Yes: Regular, CTA Bilaterally Gastrointestinal: Yes: Normal Bowel Sounds, Soft Musculoskeletal: Yes: WNL Extremities: Yes: Other Wound/Incision: Yes: Dressing Dry and Intact Neurological: Yes: Alert, Oriented Psychiatric: Yes: Alert, Oriented Labs: CBC, BMP 02/02/19 05:37 02/02/19 05:37 INR, PTT INR 1.26 (0.83-1.09) H 02/01/19 14:14 Assessment/Plan Problem List - Problems (1) Diarrhea Code(s): R19.7 - DIARRHEA, UNSPECIFIED (2) Hyperkalemia Code(s): E87.5 - HYPERKALEMIA (3) Hypocalcemia Code(s): E83.51 - HYPOCALCEMIA (4) Hypomagnesemia Code(s): E83.42 - HYPOMAGNESEMIA (5) Wound cellulitis Code(s): L03.90 - CELLULITIS, UNSPECIFIED plan continue abx wound care
[2019-02-03] MEDS ORDERED: PT OWN MED DRAWER 7, Y5N ONE (14:33)
--- NOTE | 2019-02-03 14:59 | PN ---
Progress Note, Physician - Current Medication List Current Medications: Active Medications Acetaminophen (Tylenol -) 1,000 mg PO Q6H PRN PRN Reason: PAIN LEVEL 7 - 10 Last Admin: 02/02/19 21:30 Dose: 1,000 mg Allopurinol (Zyloprim -) 300 mg PO DAILY [facility] Last Admin: 02/03/19 09:44 Dose: 300 mg Atorvastatin Calcium (Lipitor -) 40 mg PO HS [facility] Last Admin: 02/02/19 21:30 Dose: 40 mg Carvedilol (Coreg -) 6.25 mg PO BID [facility] Last Admin: 02/03/19 09:45 Dose: 6.25 mg Famotidine (Pepcid -) 20 mg PO DAILY [facility] Last Admin: 02/03/19 09:46 Dose: 20 mg Ferrous Sulfate (Feosol -) 325 mg PO DAILY [facility] Last Admin: 02/03/19 09:45 Dose: 325 mg Furosemide (Lasix -) 60 mg PO DAILY [facility] Last Admin: 02/03/19 09:45 Dose: 60 mg Heparin Sodium (Porcine) (Heparin -) 5,000 unit SQ BID [facility] Last Admin: 02/03/19 09:45 Dose: 5,000 unit Aztreonam 1 gm/ Dextrose 50 mls @ 100 mls/hr IVPB Q8H-IV [facility]; Protocol Last Admin: 02/03/19 09:46 Dose: 100 mls/hr Vancomycin HCl 1,250 mg/ (Dextrose) 250 mls @ 250 mls/2 hr IVPB Q24H [facility]; Protocol Last Admin: 02/02/19 18:29 Dose: 250 mls/2 hr Levothyroxine Sodium (Synthroid -) 88 mcg PO AM [facility] Last Admin: 02/03/19 06:13 Dose: 88 mcg Pantoprazole Sodium (Protonix -) 40 mg PO DAILY [facility] Last Admin: 02/03/19 09:45 Dose: 40 mg Silver Sulfadiazine (Silvadene -) 1 applic TP DAILY [facility] Last Admin: 02/02/19 10:14 Dose: 1 applic - Objective Vital Signs: Vital Signs Temperature 97.7 F 02/03/19 06:13 Pulse Rate 74 02/03/19 06:13 Respiratory Rate 19 02/03/19 09:00 Blood Pressure 150/65 02/03/19 06:13 O2 Sat by Pulse Oximetry (%) 98 02/03/19 09:00 Constitutional: Yes: No Distress HENT: Yes: Atraumatic Neck: Yes: Supple Cardiovascular: Yes: Regular Rate and Rhythm Respiratory: Yes: CTA Bilaterally Gastrointestinal: Yes: Normal Bowel Sounds Edema: Yes Edema: LLE: 1+, RLE: 1+ Peripheral Pulses WNL: Yes Neurological: Yes: Alert, Oriented Labs: CBC, BMP 02/02/19 05:37 02/02/19 05:37 INR, PTT INR 1.26 (0.83-1.09) H 02/01/19 14:14 Problem List - Problems (1) Diarrhea Assessment/Plan: ivf check stool cx, c diff...negative Code(s): R19.7 - DIARRHEA, UNSPECIFIED (2) Hyperkalemia Assessment/Plan: will fu Code(s): E87.5 - HYPERKALEMIA (3) Hypocalcemia Code(s): E83.51 - HYPOCALCEMIA (4) Hypomagnesemia Code(s): E83.42 - HYPOMAGNESEMIA (5) Wound cellulitis Assessment/Plan: on iv abx id on board Code(s): L03.90 - CELLULITIS, UNSPECIFIED
[2019-02-03] MEDS: VANCOMYCIN HCL 1,250 MG in DEXTROSE 5%-WATER - 250 ML IVPB SCH (15:03)
[2019-02-03] MEDS: SILVER SULFADIAZINE 1% TOP CREAM 50 GM JAR TP SCH (15:03)
[2019-02-03] MEDS: ATORVASTATIN CA 40 MG TABLET (FP) PO SCH (21:06)
[2019-02-03] MEDS: ACETAMINOPHEN 500 MG TABLET (FP) PO PRN (22:38)
[2019-02-04] MEDS ORDERED: AZTREONAM 1 GM VIAL (RESTRICTED TO ID) ONE ×3 (00:24→17:25)
[2019-02-04] MEDS ORDERED: DEXTROSE 5%-WATER - 50 ML IVPB ONE ×3 (00:25→17:25)
[2019-02-04] MEDS: AZTREONAM 1 GM in DEXTROSE 5%-WATER - 50 ML IVPB SCH ×3 (02:00→18:25)
[2019-02-04] MEDS: LEVOTHYROXINE NA 88 MCG TABLET (FP) PO SCH (05:59)
[2019-02-04] MEDS: HEPARIN NA (PORCINE) 5,000 UNITS/ML 1ML VIAL SQ SCH ×2 (10:28→21:25)
--- NOTE | 2019-02-04 10:31 | PN ---
Progress Note, Physician History of Present Illness: patient doing well calm no complaints dressing removed wound looks healthy - Current Medication List Current Medications: Active Medications Acetaminophen (Tylenol -) 1,000 mg PO Q6H PRN PRN Reason: PAIN LEVEL 7 - 10 Last Admin: 02/03/19 22:38 Dose: 1,000 mg Allopurinol (Zyloprim -) 300 mg PO DAILY [facility] Last Admin: 02/03/19 09:44 Dose: 300 mg Atorvastatin Calcium (Lipitor -) 40 mg PO HS [facility] Last Admin: 02/03/19 21:06 Dose: 40 mg Carvedilol (Coreg -) 6.25 mg PO BID [facility] Last Admin: 02/03/19 21:06 Dose: 6.25 mg Famotidine (Pepcid -) 20 mg PO DAILY [facility] Last Admin: 02/03/19 09:46 Dose: 20 mg Ferrous Sulfate (Feosol -) 325 mg PO DAILY [facility] Last Admin: 02/03/19 09:45 Dose: 325 mg Furosemide (Lasix -) 60 mg PO DAILY [facility] Last Admin: 02/03/19 09:45 Dose: 60 mg Heparin Sodium (Porcine) (Heparin -) 5,000 unit SQ BID [facility] Last Admin: 02/03/19 21:06 Dose: 5,000 unit Aztreonam 1 gm/ Dextrose 50 mls @ 100 mls/hr IVPB Q8H-IV [facility]; Protocol Last Admin: 02/04/19 02:00 Dose: 100 mls/hr Vancomycin HCl 1,250 mg/ (Dextrose) 250 mls @ 250 mls/2 hr IVPB Q24H [facility]; Protocol Last Admin: 02/03/19 15:03 Dose: 250 mls/2 hr Levothyroxine Sodium (Synthroid -) 88 mcg PO AM [facility] Last Admin: 02/04/19 05:59 Dose: 88 mcg Pantoprazole Sodium (Protonix -) 40 mg PO DAILY [facility] Last Admin: 02/03/19 09:45 Dose: 40 mg Silver Sulfadiazine (Silvadene -) 1 applic TP DAILY [facility] Last Admin: 02/03/19 15:03 Dose: 1 applic - Objective Vital Signs: Vital Signs Temperature 98.0 F 02/03/19 21:58 Pulse Rate 85 02/03/19 21:58 Respiratory Rate 20 02/03/19 21:58 Blood Pressure 145/80 02/03/19 21:58 O2 Sat by Pulse Oximetry (%) 100 02/03/19 20:24 Constitutional: Yes: No Distress, Calm Cardiovascular: Yes: S1, S2 Respiratory: Yes: Regular, CTA Bilaterally Gastrointestinal: Yes: Normal Bowel Sounds, Soft Musculoskeletal: Yes: WNL Extremities: Yes: Other Integumentary: Yes: Erythema (improving) Wound/Incision: Yes: Clean/Dry, Dressing Removed Neurological: Yes: Alert, Oriented Psychiatric: Yes: Alert, Oriented Labs: CBC, BMP 02/02/19 05:37 02/02/19 05:37 INR, PTT INR 1.26 (0.83-1.09) H 02/01/19 14:14 Assessment/Plan Problem List - Problems (1) Diarrhea Code(s): R19.7 - DIARRHEA, UNSPECIFIED (2) Hyperkalemia Code(s): E87.5 - HYPERKALEMIA (3) Hypocalcemia Code(s): E83.51 - HYPOCALCEMIA (4) Hypomagnesemia Code(s): E83.42 - HYPOMAGNESEMIA (5) Wound cellulitis Code(s): L03.90 - CELLULITIS, UNSPECIFIED plan continue abx wound care
[2019-02-04] MEDS: FAMOTIDINE 20 MG TABLET PO SCH (10:36)
[2019-02-04] MEDS: FUROSEMIDE 20 MG TABLET (FP) PO SCH (10:36)
[2019-02-04] MEDS: FERROUS SO4 325 MG TABLET (FP) PO SCH (10:36)
[2019-02-04] MEDS: ALLOPURINOL 300 MG TABLET (FP) PO SCH (10:36)
[2019-02-04] MEDS: CARVEDILOL 6.25 MG TABLET (FP) PO SCH ×2 (10:36→21:25)
[2019-02-04] MEDS: SILVER SULFADIAZINE 1% TOP CREAM 50 GM JAR TP SCH (10:37)
[2019-02-04] MEDS: PANTOPRAZOLE 40 MG TABLET (FP) PO SCH (10:38)
[2019-02-04] MEDS: VANCOMYCIN HCL 1,250 MG in DEXTROSE 5%-WATER - 250 ML IVPB SCH (12:44)
--- NOTE | 2019-02-04 15:44 | PN ---
Progress Note, Physician - Current Medication List Current Medications: Active Medications Acetaminophen (Tylenol -) 1,000 mg PO Q6H PRN PRN Reason: PAIN LEVEL 7 - 10 Last Admin: 02/03/19 22:38 Dose: 1,000 mg Albuterol Sulfate (Ventolin 0.083% Nebulizer Soln -) 1 amp NEB RBID [facility] Allopurinol (Zyloprim -) 300 mg PO DAILY [facility] Last Admin: 02/04/19 10:36 Dose: 300 mg Atorvastatin Calcium (Lipitor -) 40 mg PO HS [facility] Last Admin: 02/03/19 21:06 Dose: 40 mg Carvedilol (Coreg -) 6.25 mg PO BID [facility] Last Admin: 02/04/19 10:36 Dose: 6.25 mg Famotidine (Pepcid -) 20 mg PO DAILY [facility] Last Admin: 02/04/19 10:36 Dose: 20 mg Ferrous Sulfate (Feosol -) 325 mg PO DAILY [facility] Last Admin: 02/04/19 10:36 Dose: 325 mg Furosemide (Lasix -) 60 mg PO DAILY [facility] Last Admin: 02/04/19 10:36 Dose: 60 mg Heparin Sodium (Porcine) (Heparin -) 5,000 unit SQ BID [facility] Last Admin: 02/04/19 10:28 Dose: 5,000 unit Aztreonam 1 gm/ Dextrose 50 mls @ 100 mls/hr IVPB Q8H-IV [facility]; Protocol Last Admin: 02/04/19 10:27 Dose: 100 mls/hr Vancomycin HCl 1,250 mg/ (Dextrose) 250 mls @ 250 mls/2 hr IVPB Q24H [facility]; Protocol Last Admin: 02/04/19 12:44 Dose: 250 mls/2 hr Levothyroxine Sodium (Synthroid -) 88 mcg PO AM [facility] Last Admin: 02/04/19 05:59 Dose: 88 mcg Pantoprazole Sodium (Protonix -) 40 mg PO DAILY [facility] Last Admin: 02/04/19 10:38 Dose: 40 mg Silver Sulfadiazine (Silvadene -) 1 applic TP DAILY [facility] Last Admin: 02/04/19 10:37 Dose: 1 applic - Objective Vital Signs: Vital Signs Temperature 97.5 F L 02/04/19 15:32 Pulse Rate 71 02/04/19 15:32 Respiratory Rate 20 02/04/19 15:32 Blood Pressure 152/58 L 02/04/19 15:32 O2 Sat by Pulse Oximetry (%) 100 02/03/19 20:24 Constitutional: Yes: No Distress HENT: Yes: Atraumatic Neck: Yes: Supple Cardiovascular: Yes: Regular Rate and Rhythm Respiratory: Yes: CTA Bilaterally Gastrointestinal: Yes: Normal Bowel Sounds Extremities: Yes: WNL Edema: No Neurological: Yes: Alert, Oriented Labs: CBC, BMP 02/02/19 05:37 02/02/19 05:37 INR, PTT INR 1.26 (0.83-1.09) H 02/01/19 14:14 Problem List - Problems (1) Diarrhea Assessment/Plan: check stool cx, c diff...negative Code(s): R19.7 - DIARRHEA, UNSPECIFIED (2) Hyperkalemia Assessment/Plan: wnl Code(s): E87.5 - HYPERKALEMIA (3) Hypocalcemia Code(s): E83.51 - HYPOCALCEMIA (4) Hypomagnesemia Code(s): E83.42 - HYPOMAGNESEMIA (5) Wound cellulitis Assessment/Plan: on iv abx id on board Code(s): L03.90 - CELLULITIS, UNSPECIFIED
[2019-02-04] MEDS ORDERED: PHENYLEPHRINE HCL/COCOA BUTTER SUPPOSITORY RC PRN (19:06)
[2019-02-04] MEDS ORDERED: LOPERAMIDE HCL 2 MG CAPSULE PO ONE (19:08)
[2019-02-04] MEDS: ATORVASTATIN CA 40 MG TABLET (FP) PO SCH (21:25)
[2019-02-04] MEDS: ALBUTEROL SO4 0.083% IH SOL 2.5 MG/3 ML VIAL.NEB. NEB SCH (21:31)
[2019-02-04] MEDS: ACETAMINOPHEN 500 MG TABLET (FP) PO PRN (23:06)
[2019-02-05] MEDS ORDERED: AZTREONAM 1 GM VIAL (RESTRICTED TO ID) ONE ×3 (01:31→16:55)
[2019-02-05] MEDS ORDERED: DEXTROSE 5%-WATER - 50 ML IVPB ONE ×3 (01:31→16:55)
[2019-02-05] MEDS: AZTREONAM 1 GM in DEXTROSE 5%-WATER - 50 ML IVPB SCH ×3 (01:36→18:04)
[2019-02-05] MEDS: LEVOTHYROXINE NA 88 MCG TABLET (FP) PO SCH (06:42)
[2019-02-05] MEDS ORDERED: PT OWN MED DRAWER 7, Y5N ONE (06:56)
[2019-02-05] MEDS: ALBUTEROL SO4 0.083% IH SOL 2.5 MG/3 ML VIAL.NEB. NEB SCH ×2 (07:35→20:19)
[2019-02-05 09:06] LABS: EOS % 3.4 % (0-4.5); HEMATOCRIT 25.7 % (32.4-45.2); HEMOGLOBIN 8.2 GM/dL (10.7-15.3); LYMPH % 20.5 % (8-40); MCH 28.7 pg (25.7-33.7); MCHC 31.9 g/dl (32.0-36.0); MONO % 5.5 % (3.8-10.2); NEUT % 68.6 % (42.8-82.8); PLATELET COUNT 56 K/MM3 (134-434); RBC 2.86 M/mm3 (3.60-5.2); RDW 20.1 % (11.6-15.6); WHITE BLOOD COUNT 3.1 K/mm3 (4.0-10.0)
[2019-02-05 10:23] LABS: ALBUMIN 2.4 g/dl (3.4-5.0); BILIRUBIN,TOTAL 0.5 mg/dL (0.2-1); BLOOD UREA NITROGEN 77.6 mg/dL (7-18); CALCIUM 7.4 mg/dL (8.5-10.1); CREATININE 1.7 mg/dL (0.55-1.3); POTASSIUM 4.6 mmol/L (3.5-5.1); TOT PROT 6.2 g/dl (6.4-8.2)
[2019-02-05] MEDS: FUROSEMIDE 20 MG TABLET (FP) PO SCH (11:20)
[2019-02-05] MEDS: ALLOPURINOL 300 MG TABLET (FP) PO SCH (11:20)
[2019-02-05] MEDS: FERROUS SO4 325 MG TABLET (FP) PO SCH (11:20)
[2019-02-05] MEDS: HEPARIN NA (PORCINE) 5,000 UNITS/ML 1ML VIAL SQ SCH ×2 (11:20→22:00)
[2019-02-05] MEDS: FAMOTIDINE 20 MG TABLET PO SCH (11:20)
[2019-02-05] MEDS: PANTOPRAZOLE 40 MG TABLET (FP) PO SCH (11:20)
[2019-02-05] MEDS: CARVEDILOL 6.25 MG TABLET (FP) PO SCH ×2 (11:20→22:00)
[2019-02-05] MEDS: SILVER SULFADIAZINE 1% TOP CREAM 50 GM JAR TP SCH (11:21)
--- NOTE | 2019-02-05 11:32 | PN ---
Progress Note, Physician History of Present Illness: stable doing well no issues - Current Medication List Current Medications: Active Medications Acetaminophen (Tylenol -) 1,000 mg PO Q6H PRN PRN Reason: PAIN LEVEL 7 - 10 Last Admin: 02/04/19 23:06 Dose: 1,000 mg Albuterol Sulfate (Ventolin 0.083% Nebulizer Soln -) 1 amp NEB RBID [facility] [place] Last Admin: 02/05/19 07:35 Dose: 1 amp Allopurinol (Zyloprim -) 300 mg PO DAILY [facility] [place] Last Admin: 02/05/19 11:20 Dose: 300 mg Atorvastatin Calcium (Lipitor -) 40 mg PO HS [facility] [place] Last Admin: 02/04/19 21:25 Dose: 40 mg Carvedilol (Coreg -) 6.25 mg PO BID [facility] [place] Last Admin: 02/05/19 11:20 Dose: 6.25 mg [place] Butter/Phenylephrine (Preparation H Suppository) 1 each RC DAILY PRN PRN Reason: CONSTIPATION Famotidine (Pepcid -) 20 mg PO DAILY [facility] [place] Last Admin: 02/05/19 11:20 Dose: 20 mg Ferrous Sulfate (Feosol -) 325 mg PO DAILY [facility] [place] Last Admin: 02/05/19 11:20 Dose: 325 mg Furosemide (Lasix -) 60 mg PO DAILY [facility] [place] Last Admin: 02/05/19 11:20 Dose: 60 mg Heparin Sodium (Porcine) (Heparin -) 5,000 unit SQ BID [facility] [place] Last Admin: 02/05/19 11:20 Dose: 5,000 unit Aztreonam 1 gm/ Dextrose 50 mls @ 100 mls/hr IVPB Q8H-IV [facility]; Protocol Last Admin: 02/05/19 11:19 Dose: 100 mls/hr Vancomycin HCl 1,250 mg/ (Dextrose) 250 mls @ 250 mls/2 hr IVPB Q24H [facility] [place]; Protocol Last Admin: 02/04/19 12:44 Dose: 250 mls/2 hr Levothyroxine Sodium (Synthroid -) 88 mcg PO AM [facility] [place] Last Admin: 02/05/19 06:42 Dose: 88 mcg Pantoprazole Sodium (Protonix -) 40 mg PO DAILY [facility] [place] Last Admin: 02/05/19 11:20 Dose: 40 mg Silver Sulfadiazine (Silvadene -) 1 applic TP DAILY [facility] [place] Last Admin: 02/05/19 11:21 Dose: 1 applic - Objective Vital Signs: Vital Signs Temperature 98.0 F 02/05/19 05:33 Pulse Rate 73 02/05/19 05:33 Respiratory Rate 20 02/05/19 05:33 Blood Pressure 140/57 L 02/05/19 05:33 O2 Sat by Pulse Oximetry (%) 100 02/04/19 20:46 Constitutional: Yes: No Distress, Calm Cardiovascular: Yes: S1, S2 Respiratory: Yes: Regular, CTA Bilaterally Gastrointestinal: Yes: Normal Bowel Sounds, Soft Musculoskeletal: Yes: WNL Extremities: Yes: WNL Wound/Incision: Yes: Dressing Dry and Intact Neurological: Yes: Alert, Oriented Psychiatric: Yes: Alert, Oriented Labs: CBC, BMP 02/05/19 07:55 02/05/19 07:55 INR, PTT INR 1.26 (0.83-1.09) H 02/01/19 14:14 Assessment/Plan Problem List - Problems (1) Diarrhea Code(s): R19.7 - DIARRHEA, UNSPECIFIED (2) Hyperkalemia Code(s): E87.5 - HYPERKALEMIA (3) Hypocalcemia Code(s): E83.51 - HYPOCALCEMIA (4) Hypomagnesemia Code(s): E83.42 - HYPOMAGNESEMIA (5) Wound cellulitis Code(s): L03.90 - CELLULITIS, UNSPECIFIED plan continue abx wound care will check vanco level rest as per the team
[2019-02-05] MEDS: VANCOMYCIN HCL 1,250 MG in DEXTROSE 5%-WATER - 250 ML IVPB SCH (14:04)
--- NOTE | 2019-02-05 19:23 | PN ---
Progress Note, Physician History of Present Illness: stable - Current Medication List Current Medications: Active Medications Acetaminophen (Tylenol -) 1,000 mg PO Q6H PRN PRN Reason: PAIN LEVEL 7 - 10 Last Admin: 02/04/19 23:06 Dose: 1,000 mg Albuterol Sulfate (Ventolin 0.083% Nebulizer Soln -) 1 amp NEB RBID [facility] Last Admin: 02/05/19 07:35 Dose: 1 amp Allopurinol (Zyloprim -) 300 mg PO DAILY [facility] Last Admin: 02/05/19 11:20 Dose: 300 mg Atorvastatin Calcium (Lipitor -) 40 mg PO HS [facility] Last Admin: 02/04/19 21:25 Dose: 40 mg Carvedilol (Coreg -) 6.25 mg PO BID [facility] Last Admin: 02/05/19 11:20 Dose: 6.25 mg [place] Butter/Phenylephrine (Preparation H Suppository) 1 each RC DAILY PRN PRN Reason: CONSTIPATION Famotidine (Pepcid -) 20 mg PO DAILY [facility] Last Admin: 02/05/19 11:20 Dose: 20 mg Ferrous Sulfate (Feosol -) 325 mg PO DAILY [facility] Last Admin: 02/05/19 11:20 Dose: 325 mg Furosemide (Lasix -) 60 mg PO DAILY [facility] Last Admin: 02/05/19 11:20 Dose: 60 mg Heparin Sodium (Porcine) (Heparin -) 5,000 unit SQ BID [facility] Last Admin: 02/05/19 11:20 Dose: 5,000 unit Aztreonam 1 gm/ Dextrose 50 mls @ 100 mls/hr IVPB Q8H-IV [facility]; Protocol Last Admin: 02/05/19 18:04 Dose: 100 mls/hr Vancomycin HCl 1,250 mg/ (Dextrose) 250 mls @ 250 mls/2 hr IVPB Q24H [facility]; Protocol Last Admin: 02/05/19 14:04 Dose: 250 mls/2 hr Levothyroxine Sodium (Synthroid -) 88 mcg PO AM [facility] Last Admin: 02/05/19 06:42 Dose: 88 mcg Pantoprazole Sodium (Protonix -) 40 mg PO DAILY [facility] Last Admin: 02/05/19 11:20 Dose: 40 mg Silver Sulfadiazine (Silvadene -) 1 applic TP DAILY [facility] Last Admin: 02/05/19 11:21 Dose: 1 applic - Objective Vital Signs: Vital Signs Temperature 98 F 02/05/19 14:29 Pulse Rate 76 02/05/19 14:29 Respiratory Rate 20 02/05/19 14:29 Blood Pressure 150/64 02/05/19 14:29 O2 Sat by Pulse Oximetry (%) 100 02/05/19 09:00 Constitutional: Yes: No Distress HENT: Yes: Atraumatic Neck: Yes: Supple Cardiovascular: Yes: Regular Rate and Rhythm Respiratory: Yes: CTA Bilaterally Gastrointestinal: Yes: Normal Bowel Sounds Extremities: Yes: Other (b/l prasad wounds) Neurological: Yes: Alert, Oriented Labs: CBC, BMP 02/05/19 07:55 02/05/19 07:55 INR, PTT INR 1.26 (0.83-1.09) H 02/01/19 14:14 Problem List - Problems (1) Diarrhea Code(s): R19.7 - DIARRHEA, UNSPECIFIED (2) Hyperkalemia Code(s): E87.5 - HYPERKALEMIA (3) Hypocalcemia Code(s): E83.51 - HYPOCALCEMIA (4) Hypomagnesemia Code(s): E83.42 - HYPOMAGNESEMIA (5) Wound cellulitis Code(s): L03.90 - CELLULITIS, UNSPECIFIED
[2019-02-05] MEDS: ATORVASTATIN CA 40 MG TABLET (FP) PO SCH (22:00)
[2019-02-05] MEDS: ACETAMINOPHEN 500 MG TABLET (FP) PO PRN (22:54)
[2019-02-06] MEDS ORDERED: DEXTROSE 5%-WATER - 50 ML IVPB ONE ×2 (02:31→10:20)
[2019-02-06] MEDS ORDERED: AZTREONAM 1 GM VIAL (RESTRICTED TO ID) ONE ×2 (02:31→10:20)
[2019-02-06] MEDS: AZTREONAM 1 GM in DEXTROSE 5%-WATER - 50 ML IVPB SCH ×2 (02:39→10:25)
[2019-02-06] MEDS: LEVOTHYROXINE NA 88 MCG TABLET (FP) PO SCH (06:19)
[2019-02-06] MEDS: ALBUTEROL SO4 0.083% IH SOL 2.5 MG/3 ML VIAL.NEB. NEB SCH (07:45)
[2019-02-06] MEDS: FUROSEMIDE 20 MG TABLET (FP) PO SCH (10:26)
[2019-02-06] MEDS: HEPARIN NA (PORCINE) 5,000 UNITS/ML 1ML VIAL SQ SCH (10:26)
[2019-02-06] MEDS: PANTOPRAZOLE 40 MG TABLET (FP) PO SCH (10:26)
[2019-02-06] MEDS: ALLOPURINOL 300 MG TABLET (FP) PO SCH (10:26)
[2019-02-06] MEDS: CARVEDILOL 6.25 MG TABLET (FP) PO SCH (10:26)
[2019-02-06] MEDS: FAMOTIDINE 20 MG TABLET PO SCH (10:26)
[2019-02-06] MEDS: FERROUS SO4 325 MG TABLET (FP) PO SCH (10:26)
[2019-02-06] MEDS: SILVER SULFADIAZINE 1% TOP CREAM 50 GM JAR TP SCH (10:34)
--- NOTE | 2019-02-06 12:40 | PN ---
Progress Note, Physician History of Present Illness: stable doing well no new issues - Current Medication List Current Medications: Active Medications Acetaminophen (Tylenol -) 1,000 mg PO Q6H PRN PRN Reason: PAIN LEVEL 7 - 10 Last Admin: 02/05/19 22:54 Dose: 1,000 mg Albuterol Sulfate (Ventolin 0.083% Nebulizer Soln -) 1 amp NEB RBID [facility] Last Admin: 02/06/19 07:45 Dose: Not Given Allopurinol (Zyloprim -) 300 mg PO DAILY [facility] Last Admin: 02/06/19 10:26 Dose: 300 mg Atorvastatin Calcium (Lipitor -) 40 mg PO HS [facility] Last Admin: 02/05/19 22:00 Dose: 40 mg Carvedilol (Coreg -) 6.25 mg PO BID [facility] Last Admin: 02/06/19 10:26 Dose: 6.25 mg [place] Butter/Phenylephrine (Preparation H Suppository) 1 each RC DAILY PRN PRN Reason: CONSTIPATION Famotidine (Pepcid -) 20 mg PO DAILY [facility] Last Admin: 02/06/19 10:26 Dose: 20 mg Ferrous Sulfate (Feosol -) 325 mg PO DAILY [facility] Last Admin: 02/06/19 10:26 Dose: 325 mg Furosemide (Lasix -) 60 mg PO DAILY [facility] Last Admin: 02/06/19 10:26 Dose: 60 mg Heparin Sodium (Porcine) (Heparin -) 5,000 unit SQ BID [facility] Last Admin: 02/06/19 10:26 Dose: 5,000 unit Aztreonam 1 gm/ Dextrose 50 mls @ 100 mls/hr IVPB Q8H-IV [facility]; Protocol Last Admin: 02/06/19 10:25 Dose: 100 mls/hr Vancomycin HCl 1,250 mg/ (Dextrose) 250 mls @ 250 mls/2 hr IVPB Q24H [facility]; Protocol Last Admin: 02/05/19 14:04 Dose: 250 mls/2 hr Levothyroxine Sodium (Synthroid -) 88 mcg PO AM [facility] Last Admin: 02/06/19 06:19 Dose: 88 mcg Pantoprazole Sodium (Protonix -) 40 mg PO DAILY [facility] Last Admin: 02/06/19 10:26 Dose: 40 mg Silver Sulfadiazine (Silvadene -) 1 applic TP DAILY [facility] Last Admin: 02/06/19 10:34 Dose: 1 applic - Objective Vital Signs: Vital Signs Temperature 96.3 F L 02/06/19 05:51 Pulse Rate 70 02/06/19 05:51 Respiratory Rate 20 02/06/19 05:51 Blood Pressure 137/60 02/06/19 05:51 O2 Sat by Pulse Oximetry (%) 100 02/05/19 21:00 Constitutional: Yes: No Distress, Calm Cardiovascular: Yes: S1, S2 Respiratory: Yes: Regular, CTA Bilaterally Gastrointestinal: Yes: Normal Bowel Sounds, Soft Musculoskeletal: Yes: WNL Extremities: Yes: Other Wound/Incision: Yes: Dressing Dry and Intact Neurological: Yes: Alert, Oriented Psychiatric: Yes: Alert, Oriented Labs: CBC, BMP 02/05/19 07:55 02/05/19 07:55 INR, PTT INR 1.26 (0.83-1.09) H 02/01/19 14:14 Assessment/Plan Problem List - Problems (1) Diarrhea Code(s): R19.7 - DIARRHEA, UNSPECIFIED (2) Hyperkalemia Code(s): E87.5 - HYPERKALEMIA (3) Hypocalcemia Code(s): E83.51 - HYPOCALCEMIA (4) Hypomagnesemia Code(s): E83.42 - HYPOMAGNESEMIA (5) Wound cellulitis Code(s): L03.90 - CELLULITIS, UNSPECIFIED plan continue abx can switch to doxy 100 mg po bid for another 12 days
[2019-02-06 14:58] VITALS: BP 142/61; PULSE 83; TEMP 97.8
== END 2019-02-06 15:39 | disposition home or self-care (01) | DRG 392 ==
LOC: JER 13:18 → JERBED 18:05 → J6S 02-02 12:46
PROVIDERS: ADMIT Internal Medicine; ATTEND Internal Medicine
DX: R19.7 Diarrhea, unspecified (principal); L97.818 Non-pressure chronic ulcer of other part of right lower leg with other specified severity; L03.90 Cellulitis, unspecified; I10 Essential (primary) hypertension; E78.5 Hyperlipidemia, unspecified; I87.8 Other specified disorders of veins; K64.8 Other hemorrhoids; I25.10 Atherosclerotic heart disease of native coronary artery without angina pectoris; I27.20 Pulmonary hypertension, unspecified; D64.9 Anemia, unspecified; J44.9 Chronic obstructive pulmonary disease, unspecified; E03.9 Hypothyroidism, unspecified; E87.5 Hyperkalemia; E83.51 Hypocalcemia; E83.42 Hypomagnesemia; E86.0 Dehydration; E11.9 Type 2 diabetes mellitus without complications; Z95.2 Presence of prosthetic heart valve; Z85.118 Personal history of other malignant neoplasm of bronchus and lung
CPT/HCPCS: 36415; 71046-TC-FY; 74176-TC; 80048; 80053; 82272; 82962; 83735; 84100; 85025; 85610; 85730; 87040; 87045; 87046; 87324; 87449; 93005; 93010; 94640; 99285-25; G0480; J1644; J7030